=== PATIENT | male | born 1995 ===

== ENCOUNTER 2017-08-04 17:04 | Emergency (ER) | payer OTHER ==
[~2017-08-04] VITALS: Ht 180.3 cm; Wt 115.7 kg
--- NOTE | 2017-08-04 17:21 | ER Report ---
History and Physical Time Seen By MD: 17:19 Hx. of Stated Complaint: PATIENT FAINTED; VOMITED, AND HASNT FELT GOOD TODAY AT ALL. (TAWANA ARIAS MD) HPI/ROS CC: Bodyaches syncope HPI: 22-year-old male with a negative past medical history states that he has had an ongoing cough and body aches since May 2017. He did have one round of a Z- Rajeev with little relief. Today he was coughing which is a nonproductive cough and he passed out. They can E came to the emergency department. He is slightly nauseated with body aches, fever and chills, denies any rashes. He is tachycardic when he arrived to the emergency department. He is definitely with malaise. There are no alleviating factors activity makes it worse. ROS: 12 point review of systems essentially negative other than what's mentioned in history of present illness. NURSES AND OLD MEDICAL RECORDS: Reviewed PMH: Reviewed SURGICAL HX: Reviewed FAMILY HX: Noncontributory SOCIAL HX: 22-year-old male denies smoking alcohol or illicit drugs. VITAL SIGNS: Reviewed CONSTITUTIONAL: 22-year-old male in [id number] distress. PHYSICAL EXAM: HEENT: Pupils equal round reactive to light and accommodate, EOMI, tympanic membranes pearly white umbo present with good light reflex. Lips dry mucous membranes moist gums nonbleeding uvula midline and rises equally with phonation, oropharynx noninjected, teeth intact. NECK: Neck supple, thyroid not appreciated, anterior and posterior cervical lymphadenopathy not appreciated. Trachea midline and rises equally with phonation. CARDIAC: S1-S2 tachycardic regular rate rhythm no murmurs rubs or gallops. LUNGS: Lungs decreased air movement with rhonchi bilaterally posteriorly in all pitts. ABDOMEN: Abdomen soft, nondistended, bowel sounds active in all 4 quadrants, no bruits noted, no CVA tenderness. MUSCULOSKELETAL: Strength 5 out of 5 x 4 extremities, no deformities noted. NEUROLOGIC: Patient alert and oriented by 3 (TAWANA ARIAS MD) Allergies: Coded Allergies: No Known Drug Allergies (Unverified , 08/04/17) Home Meds Active Scripts Cefuroxime Axetil (CEFUROXIME) 500 Mg Tablet, 500 MG PO BID for bronchitis, #14 TAB Prov:MARISEL WEI DO 08/04/17 Oxycodone Hcl/Acetaminophen (PERCOCET 5-325 MG TABLET) 1 Each Tablet, 1 EACH PO Q4-6H Y for Pain and cough suppression, #12 Prov:MARISEL WEI DO 08/04/17 Promethazine Hcl (PROMETHAZINE HCL) 25 Mg Tablet, 25 MG PO Q4H Y for nausea and cough suppression, #14 TAB Prov:MARISEL WEI DO 08/04/17 Hx Substance Use Disorder: No Hx Alcohol Use: No (TAWANA ARIAS MD) Constitutional Vital Sign - Last 24 Hours 08/04/17 08/04/17 08/04/17 08/04/17 17:12 17:16 17:30 17:34 Temp 99.7 Pulse 139 122 Resp 19 19 B/P (MAP) 144/64 (90) 144/64 130/65 (86) Pulse Ox 94 91 O2 Delivery Room Air 08/04/17 08/04/17 08/04/17 08/04/17 17:35 17:35 17:45 18:04 Pulse 122 125 125 Resp 18 18 15 B/P (MAP) 130/52 (78) Pulse Ox 94 95 O2 Delivery Room Air 08/04/17 08/04/17 08/04/17 18:30 18:34 19:00 Pulse 126 Resp 12 B/P (MAP) 113/49 (70) 101/53 (69) Pulse Ox 92 (MARISEL WEI DO) Medical Decision Making Data Points Result Diagram: 08/04/17 1720 08/04/17 1720 Laboratory Hematology Test 08/04/17 17:14 08/04/17 17:20 08/04/17 17:59 Urine Color Yellow Urine Clarity Clear Urine pH 5.0 pH (4.8-9.5) Urine Specific [place] 1.025 Urine Protein Negative mg/dL (NEGATIVE) Urine Glucose (UA) Negative mg/dL (NEGATIVE) Urine Ketones Negative mg/dL (NEGATIVE) Urine Blood Negative (NEGATIVE) Urine Nitrite Negative (NEGATIVE) Urine Bilirubin Negative (NEGATIVE) Urine Urobilinogen Negative mg/dL (0.2-1.9) Urine Leukocyte Esterase Negative (NEGATIVE) Urine RBC <1 /HPF (0-2/HPF) Urine WBC 2 /HPF (0-5/HPF) Urine Squamous Epithelial Cells None /LPF (</=FEW) Urine Bacteria Negative /HPF (NONE-FEW) Urine Mucus Few /HPF (NONE-FEW) Red Blood Count 5.31 M/uL (4.00-5.60) Mean Corpuscular Volume 86.5 fL (80.0-96.0) Mean Corpuscular Hemoglobin 30.8 pg (26.0-33.0) Mean Corpuscular Hemoglobin Concent 35.6 g/dL (32.0-36.0) Red Cell Distribution Width 12.9 % (11.5-14.5) Mean Platelet Volume 8.1 fL (7.2-11.1) Neutrophils (%) (Auto) 76.4 % (39.4-72.5) Lymphocytes (%) (Auto) 5.7 % (17.6-49.6) Monocytes (%) (Auto) 17.1 % (4.1-12.4) Eosinophils (%) (Auto) 0.3 % (0.4-6.7) Basophils (%) (Auto) 0.5 % (0.3-1.4) Nucleated RBC Relative Count (auto) 0.1 /100WBC Neutrophils # (Auto) 8.8 K/uL (2.0-7.4) Lymphocytes # (Auto) 0.7 K/uL (1.3-3.6) Monocytes # (Auto) 2.0 K/uL (0.3-1.0) Eosinophils # (Auto) 0.0 K/uL (0.0-0.5) Basophils # (Auto) 0.1 K/uL (0.0-0.1) Nucleated RBC Absolute Count (auto) 0.01 K/uL Erythrocyte Sedimentation Rate 24 mm/HOUR (0-15) Prothrombin Time 13.7 seconds (12.0-14.4) Prothromb Time International Ratio 1.05 Activated Partial Thromboplast Time 29 seconds (23-35) Sodium Level 134 mmol/L (137-145) Potassium Level 3.4 mmol/L (3.5-5.0) Chloride Level 101 mmol/L (98-107) Carbon Dioxide Level 21 mmol/L (22-30) Blood Urea Nitrogen 16 mg/dl (9-21) Creatinine 0.90 mg/dl (0.66-1.25) Glomerular Filtration Rate Calc > 60.0 Random Glucose 90 mg/dl (75-110) Calcium Level 9.1 mg/dl (8.4-10.2) Magnesium Level 1.8 mg/dl (1.7-2.2) Total Bilirubin 0.6 mg/dl (0.2-1.3) Aspartate Amino Transf (AST/SGOT) 51 U/L (0-35) Alanine Aminotransferase (ALT/SGPT) 75 U/L (0-56) Alkaline Phosphatase 105 U/L (0-126) Total Creatine Kinase 78 U/L (55-170) Troponin I < 0.012 ng/ml C-Reactive Protein 2.9 mg/dl (<1.0) Total Protein 8.3 gm/dl (6.3-8.2) Albumin 4.3 g/dl (3.5-5.0) Monoscreen Negative (NEGATIVE) Influenza Type A Antigen Negative (NEGATIVE) Influenza Type B Antigen Positive (NEGATIVE) Group A Streptococcus Screen Negative (NEGATIVE) D-Dimer Quantitative (PE/DVT) 0.34 ug/ml (0-0.50) Chemistry Test 08/04/17 17:14 08/04/17 17:20 08/04/17 17:59 Urine Color Yellow Urine Clarity Clear Urine pH 5.0 pH (4.8-9.5) Urine Specific [place] 1.025 Urine Protein Negative mg/dL (NEGATIVE) Urine Glucose (UA) Negative mg/dL (NEGATIVE) Urine Ketones Negative mg/dL (NEGATIVE) Urine Blood Negative (NEGATIVE) Urine Nitrite Negative (NEGATIVE) Urine Bilirubin Negative (NEGATIVE) Urine Urobilinogen Negative mg/dL (0.2-1.9) Urine Leukocyte Esterase Negative (NEGATIVE) Urine RBC <1 /HPF (0-2/HPF) Urine WBC 2 /HPF (0-5/HPF) Urine Squamous Epithelial Cells None /LPF (</=FEW) Urine Bacteria Negative /HPF (NONE-FEW) Urine Mucus Few /HPF (NONE-FEW) White Blood Count 11.5 k/uL (4.5-11.0) Red Blood Count 5.31 M/uL (4.00-5.60) Hemoglobin 16.4 g/dL (14.0-18.0) Hematocrit 45.9 % (42.0-52.0) Mean Corpuscular Volume 86.5 fL (80.0-96.0) Mean Corpuscular Hemoglobin 30.8 pg (26.0-33.0) Mean Corpuscular Hemoglobin Concent 35.6 g/dL (32.0-36.0) Red Cell Distribution Width 12.9 % (11.5-14.5) Platelet Count 311 K/uL (150-450) Mean Platelet Volume 8.1 fL (7.2-11.1) Neutrophils (%) (Auto) 76.4 % (39.4-72.5) Lymphocytes (%) (Auto) 5.7 % (17.6-49.6) Monocytes (%) (Auto) 17.1 % (4.1-12.4) Eosinophils (%) (Auto) 0.3 % (0.4-6.7) Basophils (%) (Auto) 0.5 % (0.3-1.4) Nucleated RBC Relative Count (auto) 0.1 /100WBC Neutrophils # (Auto) 8.8 K/uL (2.0-7.4) Lymphocytes # (Auto) 0.7 K/uL (1.3-3.6) Monocytes # (Auto) 2.0 K/uL (0.3-1.0) Eosinophils # (Auto) 0.0 K/uL (0.0-0.5) Basophils # (Auto) 0.1 K/uL (0.0-0.1) Nucleated RBC Absolute Count (auto) 0.01 K/uL Erythrocyte Sedimentation Rate 24 mm/HOUR (0-15) Prothrombin Time 13.7 seconds (12.0-14.4) Prothromb Time International Ratio 1.05 Activated Partial Thromboplast Time 29 seconds (23-35) Glomerular Filtration Rate Calc > 60.0 Calcium Level 9.1 mg/dl (8.4-10.2) Magnesium Level 1.8 mg/dl (1.7-2.2) Total Bilirubin 0.6 mg/dl (0.2-1.3) Aspartate Amino Transf (AST/SGOT) 51 U/L (0-35) Alanine Aminotransferase (ALT/SGPT) 75 U/L (0-56) Alkaline Phosphatase 105 U/L (0-126) Total Creatine Kinase 78 U/L (55-170) Troponin I < 0.012 ng/ml C-Reactive Protein 2.9 mg/dl (<1.0) Total Protein 8.3 gm/dl (6.3-8.2) Albumin 4.3 g/dl (3.5-5.0) Monoscreen Negative (NEGATIVE) Influenza Type A Antigen Negative (NEGATIVE) Influenza Type B Antigen Positive (NEGATIVE) Group A Streptococcus Screen Negative (NEGATIVE) D-Dimer Quantitative (PE/DVT) 0.34 ug/ml (0-0.50) Coagulation Test 08/04/17 17:20 08/04/17 17:59 Prothrombin Time 13.7 seconds Prothromb Time International Ratio 1.05 Activated Partial Thromboplast Time 29 seconds D-Dimer Quantitative (PE/DVT) 0.34 ug/ml Urinalysis Test 08/04/17 17:14 Urine Color Yellow Urine Clarity Clear Urine pH 5.0 pH (4.8-9.5) Urine Specific [place] 1.025 Urine Protein Negative mg/dL (NEGATIVE) Urine Glucose (UA) Negative mg/dL (NEGATIVE) Urine Ketones Negative mg/dL (NEGATIVE) Urine Blood Negative (NEGATIVE) Urine Nitrite Negative (NEGATIVE) Urine Bilirubin Negative (NEGATIVE) Urine Urobilinogen Negative mg/dL (0.2-1.9) Urine Leukocyte Esterase Negative (NEGATIVE) Urine RBC <1 /HPF (0-2/HPF) Urine WBC 2 /HPF (0-5/HPF) Urine Squamous Epithelial Cells None /LPF (</=FEW) Urine Bacteria Negative /HPF (NONE-FEW) Urine Mucus Few /HPF (NONE-FEW) (MARISEL WEI DO) Microbiology Microbiology Date/Time Source Procedure Growth Status 08/04/17 18:05 Blood Blood Culture - Preliminary NO GROWTH AFTER 1 DAY, REINCUBATED Resulted 08/04/17 18:05 Blood Blood Culture - Preliminary NO GROWTH AFTER 1 DAY, REINCUBATED Resulted 08/04/17 17:44 Throat Group A Streptococcus Screen ([facility]) - Preliminary NORMAL RESPIRATORY FREDERICK PRESENT, CUL... Resulted (MARISEL WEI DO) EKG/Imaging EKG Interpretation Sinus tachycardia, ventricular rate 124 bpm, when necessary 132 ms, QRS duration 78 seconds., QT 300 ms, QTC 433 ms. (TAWANA ARIAS MD) EKG Interpretation EKG reviewed. Agree with Dr. Tiwari interpretation, sinus tachycardia without ischemic changes, rate 125 (MARISEL WEI DO) ED Course/Re-evaluation Clinical Indication for ER IV: Hydration, IV Access ED Course Care was assumed at shift change from with extensive diagnostic evaluation pending. His flu be returned positive. His laboratory studies were otherwise unremarkable. Treated with nebulizer treatments which improved his respiratory status. Patient will be discharged home on Ceftin antibiotic since he's had bronchitis/pneumonia symptoms for 2 weeks. Patient we also be given Phenergan and Percocet for symptomatically management. Patient is likely not going to benefit from Tamiflu. Patient advised to continue to use ibuprofen 600 mg 3 times daily. Decision to Disposition Date: Aug 04, 2017 Decision to Disposition Time: 18:39 (MARISEL WEI DO) Depart Departure Latest Vital Signs Vital Signs Date Time Temp Pulse Resp B/P (MAP) Pulse Ox O2 Delivery O2 Flow Rate FiO2 08/04/17 19:00 101/53 (69) 08/04/17 18:34 126 12 92 08/04/17 17:35 Room Air 08/04/17 17:16 99.7 (MARISEL WEI DO) Impression: Primary Impression: Influenza B Additional Impressions: Bronchitis Dehydration Condition: Improved Disposition: HOME OR SELF-CARE New Scripts Cefuroxime Axetil (CEFUROXIME) 500 Mg Tablet 500 MG PO BID for bronchitis, #14 TAB Prov: MARISEL WEI DO 08/04/17 Oxycodone Hcl/Acetaminophen (PERCOCET 5-325 MG TABLET) 1 Each Tablet 1 EACH PO Q4-6H Y for Pain and cough suppression, #12 Prov: MARISEL WEI DO 08/04/17 Promethazine Hcl (PROMETHAZINE HCL) 25 Mg Tablet 25 MG PO Q4H Y for nausea and cough suppression, #14 TAB Prov: MARISEL WEI DO 08/04/17 Patient Instructions: Influenza (ED) Additional Instructions: Take ibuprofen 200 mg 3-4 tablets 3 times a day with food Drink plenty of fluids Use Phenergan and Percocet for cough suppression and bodyache reduction You'll be covered with Ceftin antibiotic twice daily for bronchitis and pneumonia Follow-up with primary care if unimproved in 3-5 days, you may go to the physician listed on your paperwork or student health Problem Qualifiers TAWANA ARISA MD Aug 04, 2017 17:21 MARISEL WEI DO Aug 04, 2017 18:25
[2017-08-04] MEDS ORDERED: LR(*) 1000 ML BAG 1,000 ML IV ONE (17:25)
--- NOTE | 2017-08-04 17:34 | EKG ---
FACILITY: [facility] - [place] PATIENT NAME: HUBERT SIMMONS : [id number] MR: [id number] V: [id number] EXAM DATE: ORDERING PHYSICIAN: TAWANA ARIAS TECHNOLOGIST: PAULA Ramirez Reason : SYNCOPE Blood Pressure : / mmHG Vent. Rate : 125 BPM Atrial Rate : 125 BPM P-R Int : 132 ms QRS Dur : 078 ms QT Int : 300 ms P-R-T Axes : 063 075 042 degrees QTc Int : 433 ms Sinus tachycardia Otherwise normal ECG No previous ECGs available Confirmed by STEFANIA CHONG ([id number]) on 08/04/2017 8:58:10 PM Referred By: HUGO Confirmed By:STEFANIA CHONG
[2017-08-04] MEDS ORDERED: methylPREDNIS SUCC 125 MG/2ML IVP ONE (17:35)
[2017-08-04] MEDS ORDERED: ALBUTEROL/IPRATROPIUM 3 ML NEB NEB ONE (17:35)
[2017-08-04 17:46] LABS: PLATELET COUNT, AUTOMATED 311 K/uL (150-450)
[2017-08-04 17:57] LABS: INR 1.05
[2017-08-04] MEDS ORDERED: KETOROLAC 30 MG/ML VIAL IVP ONE (18:25)
[2017-08-04] MEDS ORDERED: fentaNYL CITR 100 MCG/2 ML AMP IVP ONE (18:25)
[2017-08-04] MEDS ORDERED: OXYC-865 PO (18:43)
[2017-08-04] MEDS ORDERED: PROM-110 PO (18:43)
[2017-08-04] MEDS ORDERED: CEFU500T10 PO (18:43)
[2017-08-04 19:00] VITALS: BP 101/53
== END 2017-08-04 19:12 | disposition home or self-care (01) ==
LOC: ER 17:21
DX: J11.1 Influenza due to unidentified influenza virus with other respiratory manifestations (principal); J40 Bronchitis, not specified as acute or chronic; E86.0 Dehydration
CPT/HCPCS: 81001; 82550; 83735; 84484; 85025; 85379; 85610; 85651; 85730; 86140; 86308; 87040; 87081; 87502; 87880; 93005; 94640; 96361; 96374; 96375; 99284; J1885; J2930; J3010; J7120; J7620; 82040; 82247; 82310; 82374; 82435; 82565; 82947; 84075; 84132; 84155; 84295; 84450; 84460; 84520